=== PATIENT | male | born 1975 | race Two or more races ===

== ENCOUNTER 2025-01-28 13:59 | Inpatient (IN) | payer MEDICAID, OTHER ==
[~2025-01-28] VITALS: Ht 170.2 cm; Wt 107.3 kg
--- NOTE | 2025-01-28 14:38 | ED.PDOC ---
HPI Comments 49 year old here with chest pain. Pt states he had just woken up when the discomfort started. Reports pressure-like chest discomfort with no radiation. No nausea no vomiting. Patient went to urgent care center earlier today for evaluation and there was some abnormal EKG and was sent to the ER for evaluation. Blood pressure was 180/120 at the urgent care. And was given 2 pills. He believes to lower his blood pressure. Blood pressure after was 170/105. He continues to have chest discomfort. He is a known diabetic and hypertension. Denies any shortness of breath. No recent cough cold runny nose for or chills. Chief Complaint: Chest Pain Time Seen by MD: 14:11 Reviewed Notes: Medications, Allergies Allergies: Coded Allergies: NO KNOWN ALLERGIES (Unverified , 01/28/25) Information Source: Patient Mode of Arrival: Ambulatory Past Medical History PAST MEDICAL HISTORY: DM, HTN Surgical History: Denies all surgeries Family History Family History: Unknown Social History Smoker: Non-Smoker Alcohol: Denies ETOH Use Drugs: Denies Drug Use Lives In: Home Constitutional: denies: chills, diaphoresis, fatigue, fever, malaise, sweats, weakness, others EENTM: denies: blurred vision, double vision, ear bleeding, ear discharge, ear drainage, ear pain, ear ringing, eye pain, eye redness, hearing loss, mouth pain, mouth swelling, nasal discharge, nose bleeding, nose congestion, nose pain, photophobia, tearing, throat pain, throat swelling, voice changes, others Respiratory: denies: cough, hemoptysis, orthopnea, SOB at rest, shortness of breath, SOB with excertion, stridor, wheezing, others Cardiovascular: reports: chest pain; denies: dizzy spells, diaphoresis, Dyspnea on exertion, edema, irregular heart beat, left arm pain, lightheadedness, palpitations, PND, syncope, others Gastrointestinal: denies: abdomen distended, abdominal pain, blood streaked bowels, constipated, diarrhea, dysphagia, difficulty swallowing, hematemesis, melena, nausea, poor appetite, poor fluid intake, rectal bleeding, rectal pain, vomiting, others Genitourinary: denies: burning, dysuria, flank pain, frequency, hematuria, incontinence, penile discharge, penile sore, pain, testicle pain, testicle swelling, urgency, others Neurological: denies: dizziness, fainting, headache, left sided numbness, left sided weakness, numbness, paresthesia, pre-existing deficit, right sided numbness, right sided weakness, seizure, speech problems, tingling, tremors, weakness, others Musculoskeletal: denies: back pain, gout, joint pain, joint swelling, muscle pain, muscle stiffness, neck pain, others Integumetry: denies: bruises, change in color, change in hair/nails, dryness, laceration, lesions, lumps, rash, wounds, others Allergic/Immunocompromised: denies: Difficulty Healing, Frequent Infections, Hives, Itching, others Hematologic/Lymphatic: denies: anemia, blood clots, easy bleeding, easy bruising, swollen glands, others Endocrine: denies: excessive hunger, excessive sweating, excessive thirst, excessive urination, flushing, intolerance to cold, intolerance to heat, unexplained weight gain, unexplained weight loss, others Psychiatric: denies: anxiety, bipolar disorder, depression, hopeless, panic disorder, schizophrenia, sleepless, suicidal, others All Other Systems: Reviewed and Negative Physical Exam General Appearance: No Apparent Distress, Normal HEENT: Normal ENT Inspection, Pharynx Normal, TMs Normal Neck: Full Range of Motion, Non-Tender, Normal, Normal Inspection Respiratory: Chest Non-Tender, Lungs Clear, No Accessory Muscle Use, No Respiratory Distress, Normal Breath Sounds Cardiovascular: No Edema, No JVD, No Murmur, No Gallop, Normal Peripheral Pulses, Regular Rate/Rhythm Breast Exam: Deferred Gastrointestinal: No Organomegaly, Non Tender, No Pulsatile Mass, Normal Bowel Sounds, Soft Genitalia: Deferred Pelvic: Deferred Rectal: Deferred Extremities: No calf tenderness, Normal capillary refill, Normal inspection, Normal range of motion, Non-tender, No pedal edema Musculoskeletal : Apperance: Normal Neurologic: Alert, renal dietitian II-XII nml as Tested, No Motor Deficits, Normal Affect, Normal Mood, No Sensory Deficits Cerebellar Function: Normal Reflexes: Normal Skin: Dry, Normal Color, Warm Lymphatic: No Adenopathy EKG EKG #1: Comments Seventy-five sinus rhythm mild T-wave inversion in 3 AVF V6. With some T-wave flattening in V4 V5. EKG #2: Comments EKG 2. At 3:00 p.m., 73 sinus rhythm inverted T-waves in 2 3 AVF V4 V5 Was a procedure done? Was a procedure done?: No CP Differential Dx Differential Diagnosis: N/A Differential Diagnosis: N/A Differential Diagnosis: Angina, Aortic dissection, Cholelithiasis, Myocardial Infarction, Pericarditis, Pneumonia, Pneumothorax, Pulmonary Embolus X-Ray, Labs, Meds, VS Vital Signs Date Time Temp Pulse Resp B/P (MAP) Pulse Ox O2 Delivery O2 Flow Rate FiO2 01/28/25 15:00 73 01/28/25 14:01 98.3 88 16 153/114 96 98.3 01/28/25 13:59 75 Lab Test 01/28/25 15:33 Range/Units White Blood Count 8.5 4.4-10.8 10^3/uL Red Blood Count 4.38 L 4.5-5.90 10^6/uL Hemoglobin 13.5 13.5-17.5 g/dL Hematocrit 38.9 L 41.0-53.0 % Mean Corpuscular Volume 88.8 80.0-100.0 fL Mean Corpuscular Hemoglobin 30.8 28.0-32.0 pg Mean Corpuscular Hemoglobin Concent 34.7 32.0-36.0 g/dL Red Cell Distribution Width 13.2 11.8-14.3 % Platelet Count 269 140-450 10^3/uL Mean Platelet Volume 8.1 6.9-10.8 fL Neutrophils (%) (Auto) 65.5 37.0-80.0 % Lymphocytes (%) (Auto) 23.3 10.0-50.0 % Monocytes (%) (Auto) 8.6 0.0-12.0 % Eosinophils (%) (Auto) 2.0 0.0-7.0 % Basophils (%) (Auto) 0.6 0.0-2.0 % Neutrophils # (Auto) 5.5 1.6-8.6 10 ^3/uL Lymphocytes # (Auto) 2.0 0.4-5.4 10 ^3/uL Monocytes # (Auto) 0.7 0-1.3 10 ^3/uL Eosinophils # (Auto) 0.2 0-0.8 10 ^3/uL Basophils # (Auto) 0.1 0-0.2 10 ^3/uL Nucleated Red Blood Cells 0.1 % Sodium Level 142 136-145 mmol/L Potassium Level 4.0 3.5-5.1 mmol/L Chloride Level 105 98-107 mmol/L Carbon Dioxide Level 30 20-31 mmol/L Anion Gap 7 5-15 Blood Urea Nitrogen 14 9-23 mg/dL Creatinine 0.91 0.700-1.30 mg/dL Glomerular Filtration Rate Calc 103 >90 mL/min BUN/Creatinine Ratio 15.4 10.0-20.0 Serum Glucose 175 H 74-106 mg/dL Calcium Level 9.0 8.7-10.4 mg/dL Troponin I High Sensitivity < 3 L </=54 ng/L 49 Year old male presents here with chest discomfort. He has a known history of diabetes and hypertension. He reports pressure-like discomfort. Concerned about acute coronary syndrome. CBC BMP troponin EKG has been ordered. CBC within normal limits. BMP also within normal limits. Troponin is negative. EKG however demonstrates inverted T-waves in inferior and lateral leads. Concern for acute coronary syndrome. I have given the patient nitroglycerin and aspirin in the ER. Chest x-ray has been ordered. First set troponin is negative. At this time I have spoken to hospitalist team for admission. Time of 1ST Reevaluation: 15:26 Reevaluation 1ST: Unchanged Patient Education/Counseling: Diagnosis, Treatment Family Education/Counseling: No Family Present SEPSIS Sepsis Screen Date sepsis recognized/suspect: Jan 28, 2025 Time Sepsis recognized/suspect: 1401 Recent Procedure: No On Antibiotic Therapy: No Respiratory Rate >20: No Heart Rate >90: No Temp<36 C (96.8 F) or >38.3 C: No SBP <90 or MAP <65 mmHG: No New Acute Mental Status Change: No Is the patient on CPAP, BIPAP,: No Physician Orders Electrocardigram (01/28/25 15:01) Electrocardigram (01/28/25 17:01) Troponin-I Hs (01/28/25 15:13) Vital Signs Date Time Temp Pulse Resp B/P (MAP) Pulse Ox O2 Delivery O2 Flow Rate FiO2 01/28/25 15:00 73 01/28/25 14:01 98.3 88 16 153/114 96 98.3 01/28/25 13:59 75 Laboratory Tests Test 01/28/25 15:33 White Blood Count 8.5 10^3/uL (4.4-10.8) Departure 1 Departure Time of Disposition: 16:07 Impression: Primary Impression: Chest pain Qualified Codes: R07.9 - Chest pain, unspecified Disposition: 09 ADMITTED INPATIENT Condition: Fair Critical Care Note Critical Care Time?: No Stability Stability form required: No Heart Score Heart Score: Heart Score Response (Comments) Value History Moderate Suspicious 1 EKG Repolarization Disturb 1 Age 45-64 1 Risk Factors >3 or Hx ASHD 2 Troponin Normal limit 0 Total 5 I personally scribed for RACHID MCKNIGHT MD ([email or web address]) on 01/28/25 at 14:56. Electronically submitted by Kandy Braun ([facility]). RACHID MCKNIGHT MD Jan 28, 2025 14:38
--- NOTE | 2025-01-28 15:01 | ECG ---
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
[2025-01-28 15:51] LABS: Hematocrit 38.9 % (41.0-53.0); Hemoglobin 13.5 g/dL (13.5-17.5); Mean Corpuscular Hemoglobin 30.8 pg (28.0-32.0); Mean Corpuscular Volume 88.8 fL (80.0-100.0); Nucleated Red Blood Cells % 0.1 %
[2025-01-28 15:55] LABS: Chloride 105 mmol/L (98-107); Potassium 4.0 mmol/L (3.5-5.1); Sodium 142 mmol/L (136-145)
[2025-01-28 15:56] LABS: Anion Gap 7 (5-15); Carbon Dioxide 30 mmol/L (20-31)
[2025-01-28 15:57] LABS: Calcium 9.0 mg/dL (8.7-10.4)
[2025-01-28 16:01] LABS: BUN/Creatinine Ratio 15.4 (10.0-20.0); Blood Urea Nitrogen 14 mg/dL (9-23)
[2025-01-28 16:02] LABS: Glucose 175 mg/dL (74-106)
--- NOTE | 2025-01-28 16:22 | DVHHP2 ---
Admitting Diagnosis: Chest pain History of Present Illness 49 year old here with chest pain. Pt states he had just woken up when the discomfort started. Reports pressure-like chest discomfort with no radiation. No nausea no vomiting. Patient went to urgent care center earlier today for evaluation and there was some abnormal EKG and was sent to the ER for evaluation. Blood pressure was 180/120 at the urgent care. And was given 2 pills. He believes to lower his blood pressure. Blood pressure after was 170/105. He continues to have chest discomfort. He is a known diabetic and hypertension. Denies any shortness of breath. No recent cough cold runny nose for or chills. PAST MEDICAL HISTORY: DM, HTN Surgical History: Denies all surgeries Family History Family History: Unknown Social History Smoker: Non-Smoker Alcohol: Denies ETOH Use Drugs: Denies Drug Use Lives In: Home Allergies: Coded Allergies: NO KNOWN ALLERGIES (Unverified , 01/28/25) Current Medications Current Medications Medications (Trade) Dose Ordered Sig/Debra Route PRN Reason Start Time Stop Time Status Last Admin Sodium Chloride (Saline Lock Ns) 10 ml Q8HR IV 01/28/25 22:00 Docusate Sodium (Colace Capsule) 100 mg BIDPRN PRN PO FOR CONSTIPATION 01/28/25 18:45 Acetaminophen (Tylenol Tablet) 650 mg Q6HP PRN PO PAIN SCALE 1-3 OR TEMP>100.4 01/28/25 18:45 Acetaminophen/ Hydrocodone Bitart (Trego 5/325MG Tab) 1 tab Q4HP PRN PO MODERATE PAIN (4-6 PAIN SCALE) 01/28/25 18:45 Hydromorphone HCl (Dilaudid Injection) 0.5 mg Q4HP PRN IV SEVERE PAIN (7-10 PAIN SCALE) 01/28/25 18:45 Enoxaparin Sodium (Lovenox) 40 mg DAILY SC 01/29/25 10:00 Nitroglycerin (Ntrostat Sublingual) 0.4 mg Q5MINP PRN SL FOR CHEST PAIN 01/28/25 18:45 Morphine Sulfate 2 mg Q30M PRN IV FOR CHEST PAIN 01/28/25 18:45 Hydralazine HCl (Apresoline Injection) 10 mg Q6HP PRN IV SBP>150 01/28/25 19:30 01/28/25 19:24 Vital Signs Vital Signs Date Time Temp Pulse Resp B/P (MAP) Pulse Ox O2 Delivery O2 Flow Rate FiO2 01/28/25 19:24 175/110 01/28/25 19:13 98.2 85 16 96 98.2 Physical Exam Generally-49 years old male, overweight, sitting on chair. No apparent distress HEENT-atraumatic normocephalic Heart-regular rate and rhythm Lungs clear to auscultate bilaterally Soft nontender nondistended Musculoskeletal-no edema cyanosis Neuro-AO x3 No focal deficits SEPSIS Sepsis Screen Date sepsis recognized/suspect: Jan 28, 2025 Time Sepsis recognized/suspect: 1401 Recent Procedure: No On Antibiotic Therapy: No Respiratory Rate >20: No Heart Rate >90: No Temp<36 C (96.8 F) or >38.3 C: No SBP <90 or MAP <65 mmHG: No New Acute Mental Status Change: No Is the patient on CPAP, BIPAP,: No Physician Orders Electrocardigram (01/28/25 15:01) Electrocardigram (01/28/25 17:01) Chest Two Views Routine (01/28/25 16:06) Echo 2d Mode Cardiac Dop (01/28/25 16:22) Admit (01/28/25 18:35) Code Status (01/28/25 18:35) Vital Signs .PER UNIT PROTOCOL (01/28/25 18:35) Review Orders With Adm.Md (01/28/25 18:35) Encourage Activity As Tolerate (01/28/25 18:35) Sodium Chloride Lock (Saline Lock Ns) (01/28/25 22:00) Docusate Sodium Capsule (Colace Capsule) (01/28/25 18:45) Acetaminophen Tablet (Tylenol Tablet) (01/28/25 18:45) Notify Md Of Changes From Base (01/28/25 18:35) Advance Directive (01/28/25 18:35) Patient Condition (01/28/25 18:35) Allergies (01/28/25 18:35) Hydrocodone-Acet 5/325mg Tab (Trego 5/32 (01/28/25 18:45) Hydromorphone Injection (Dilaudid Inject (01/28/25 18:45) Enoxaparin Sodium (Lovenox) (01/29/25 10:00) Nitroglycerin Sublingual (Ntrostat Subli (01/28/25 18:45) Morphine Sulfate Injection (01/28/25 18:45) Stat Ekg For Chest Pain (01/28/25 18:35) Notify Of Changes From Base (01/28/25 18:35) Front Desk Representative For 24 Hours (01/28/25 18:35) Emergency Dysrhythmia Protocol (01/28/25 18:35) Rhythm Strips Once Every Shift (01/28/25 18:35) Oxygen By Nasal Cannula (01/28/25 18:35) Cardiac Diet-2gna,Lofat,Lochol (01/29/25 Breakfast) Hydralazine Injection (Apresoline Inject (01/28/25 19:30) Vital Signs Date Time Temp Pulse Resp B/P (MAP) Pulse Ox O2 Delivery O2 Flow Rate FiO2 01/28/25 19:24 175/110 01/28/25 19:13 98.2 85 16 161/106 (124) 96 98.2 01/28/25 15:00 73 01/28/25 14:01 98.3 88 16 153/114 96 98.3 01/28/25 13:59 75 Laboratory Tests Test 01/28/25 15:33 White Blood Count 8.5 10^3/uL (4.4-10.8) Medications Medications Dose Ordered Sig/Debra Route Start Time Stop Time Status Last Admin Dose Admin Aspirin 162 mg ONCE ONCE PO 01/28/25 14:15 01/28/25 14:16 DC 01/28/25 19:27 Hydralazine HCl 10 mg Q6HP PRN IV 01/28/25 19:30 01/28/25 19:24 Results Labs Test 01/28/25 16:17 01/28/25 15:33 Range/Units Troponin I High Sensitivity < 3 L </=54 ng/L White Blood Count 8.5 4.4-10.8 10^3/uL Red Blood Count 4.38 L 4.5-5.90 10^6/uL Hemoglobin 13.5 13.5-17.5 g/dL Hematocrit 38.9 L 41.0-53.0 % Mean Corpuscular Volume 88.8 80.0-100.0 fL Mean Corpuscular Hemoglobin 30.8 28.0-32.0 pg Mean Corpuscular Hemoglobin Concent 34.7 32.0-36.0 g/dL Red Cell Distribution Width 13.2 11.8-14.3 % Platelet Count 269 140-450 10^3/uL Mean Platelet Volume 8.1 6.9-10.8 fL Neutrophils (%) (Auto) 65.5 37.0-80.0 % Lymphocytes (%) (Auto) 23.3 10.0-50.0 % Monocytes (%) (Auto) 8.6 0.0-12.0 % Eosinophils (%) (Auto) 2.0 0.0-7.0 % Basophils (%) (Auto) 0.6 0.0-2.0 % Neutrophils # (Auto) 5.5 1.6-8.6 10 ^3/uL Lymphocytes # (Auto) 2.0 0.4-5.4 10 ^3/uL Monocytes # (Auto) 0.7 0-1.3 10 ^3/uL Eosinophils # (Auto) 0.2 0-0.8 10 ^3/uL Basophils # (Auto) 0.1 0-0.2 10 ^3/uL Nucleated Red Blood Cells 0.1 % Sodium Level 142 136-145 mmol/L Potassium Level 4.0 3.5-5.1 mmol/L Chloride Level 105 98-107 mmol/L Carbon Dioxide Level 30 20-31 mmol/L Anion Gap 7 5-15 Blood Urea Nitrogen 14 9-23 mg/dL Creatinine 0.91 0.700-1.30 mg/dL Glomerular Filtration Rate Calc 103 >90 mL/min BUN/Creatinine Ratio 15.4 10.0-20.0 Serum Glucose 175 H 74-106 mg/dL Calcium Level 9.0 8.7-10.4 mg/dL Primary Diagnosis Chest pain rule out ACS Plan Patient troponin negative EKG normal sinus rhythm no significant ST segment changes Check echo of the heart rule out regional wall motion Cardiac diet Full code Lovenox for DVT prophylaxis No GI prophylaxis needed Plan discussed with: Patient Problems List: (1) Chest pain Status: Acute (2) Hypertension Date of Service: Jan 28, 2025 Billing Provider: ÁLVARO THIBODEAUX MD Common Visit Codes: [id number] INP/OBS CARE (MOD) ÁLVARO THIBODEAUX MD Jan 28, 2025 16:22
--- NOTE | 2025-01-28 16:48 | DVH ---
CHEST RADIOGRAPH Indication: ro cp Technique: Frontal and lateral view of the chest was obtained Comparison: None FINDINGS: Lines and Tubes: None Lungs: Clear Pleura: No effusion. No pneumothorax. Cardiomediastinal contours: Cardiomegaly Bones: Unremarkable IMPRESSION: Increased interstital prominence. This may represent pulmonary vascular congestion and/or viral pneum onia. Clinical correlation advised.
[2025-01-28] MEDS ORDERED: NITROGLYCERIN 0.4 MG SL TAB SL PRN (18:45)
[2025-01-28] MEDS ORDERED: HYDROmorphone HCL 2 MG/ML VL/or syr IV PRN (18:45)
[2025-01-28] MEDS ORDERED: ACETAMINOPHEN 325 MG TAB PO PRN (18:45)
[2025-01-28] MEDS ORDERED: MORPHINE SULFATE INJ 2 MG/ml SYRG IV PRN (18:45)
[2025-01-28] MEDS ORDERED: HYDROcodone-ACET 5/325MG TAB PO PRN (18:45)
[2025-01-28] MEDS ORDERED: DOCUSATE SOD 100 MG CAP PO PRN (18:45)
[2025-01-28] MEDS: hydrALAZINE HCL 20 MG/ML VL IV PRN (19:24)
[2025-01-28] MEDS: NITROGLYCERIN 0.4 MG SL TAB SL ONE (19:27)
[2025-01-28] MEDS: hydrALAZINE HCL 20 MG/ML VL ONE (19:27)
[2025-01-28] MEDS: SODIUM CHLOR 0.9% PF (SALINE LOCK) 10ML VIAL/SYR IV SCH (22:00)
[2025-01-29] VITALS (8 sets, daily range): BP systolic 104–165; BP diastolic 55–105; PULSE 71–117; RESP 16–18; TEMP 98–99.5; O2SAT 94–100
[2025-01-29 07:38] LABS: Alanine Aminotransferase 26 U/L (7-40); Alkaline Phosphatase 92 U/L (46-116); Anion Gap 8 (5-15); BUN/Creatinine Ratio 13.7 (10.0-20.0); Blood Urea Nitrogen 10 mg/dL (9-23); Carbon Dioxide 27 mmol/L (20-31); Chloride 101 mmol/L (98-107); Potassium 3.6 mmol/L (3.5-5.1); Sodium 136 mmol/L (136-145); Total Protein 6.5 g/dL (5.7-8.2)
[2025-01-29 07:39] LABS: Albumin 4.3 g/dL (3.2-4.8); Bilirubin, Total 0.6 mg/dL (0.2-1.0)
[2025-01-29 07:40] LABS: Calcium 8.7 mg/dL (8.7-10.4); Glucose 197 mg/dL (74-106)
[2025-01-29 07:45] LABS: Hematocrit 39.7 % (41.0-53.0); Hemoglobin 13.6 g/dL (13.5-17.5); Mean Corpuscular Hemoglobin 30.6 pg (28.0-32.0); Mean Corpuscular Volume 89.5 fL (80.0-100.0); Nucleated Red Blood Cells % 0.2 %
[2025-01-29] MEDS: ENOXAPARIN SOD 40 MG/0.4 ML SYRINGE SC SCH (10:00)
[2025-01-29] MEDS ORDERED: METF-370 PO (12:04)
[2025-01-29] MEDS ORDERED: LOSA-534 PO (12:04)
--- NOTE | 2025-01-29 14:25 | DVHPN2 ---
Subjective Was admitted for chest pain in the yesterday Troponins are negative Blood pressure was high He takes metformin 500 mg twice a day and losartan 50 mg daily at home Changes from previous H/P or p: Changes Objective Vitals Vital Signs Date Time Temp Pulse Resp B/P (MAP) Pulse Ox O2 Delivery O2 Flow Rate FiO2 01/29/25 13:41 141/80 (100) 100 01/29/25 10:15 Room Air* 0 98 21 01/29/25 09:00 98.8 97 16 98.8 General Appearance: Alert, Oriented X3, Cooperative, No acute distress Lungs: Clear to auscultation Cardiovascular: Regular rate, Normal S1 Abdomen: Normal bowel sounds, Soft, No tenderness Extremities: No edema Medications Current Medications Medications Dose Ordered Sig/Debra Route Start Time Stop Time Status Last Admin Dose Admin Sodium Chloride 10 ml Q8HR IV 01/28/25 22:00 01/29/25 06:00 10 ML Docusate Sodium 100 mg BIDPRN PRN PO 01/28/25 18:45 Acetaminophen 650 mg Q6HP PRN PO 01/28/25 18:45 Acetaminophen/ Hydrocodone Bitart 1 tab Q4HP PRN PO 01/28/25 18:45 Hydromorphone HCl 0.5 mg Q4HP PRN IV 01/28/25 18:45 Enoxaparin Sodium 40 mg DAILY SC 01/29/25 10:00 01/29/25 10:00 40 MG Nitroglycerin 0.4 mg Q5MINP PRN SL 01/28/25 18:45 Morphine Sulfate 2 mg Q30M PRN IV 01/28/25 18:45 Hydralazine HCl 10 mg Q6HP PRN IV 01/28/25 19:30 01/29/25 12:12 10 MG Losartan Potassium 100 mg DAILY PO 01/30/25 10:00 Laboratory Results Laboratory Tests 01/29/25 06:49 Chemistry Test 01/28/25 15:33 01/29/25 06:49 Calcium Level 9.0 mg/dL (8.7-10.4) 8.7 mg/dL (8.7-10.4) Albumin 4.3 g/dL (3.2-4.8) Total Protein 6.5 g/dL (5.7-8.2) LFT Test 01/29/25 06:49 Alanine Aminotransferase (ALT) 26 U/L (7-40) Alkaline Phosphatase 92 U/L (46-116) Aspartate Amino Transferase (AST) 16 U/L (13-40) Total Bilirubin 0.6 mg/dL (0.2-1.0) Assessment/Plan Assessment/Plan Acute chest pain rule out coronary syndrome Uncontrolled hypertension Type 2 diabetes Obesity Plan Cardiology consult Echocardiogram Aspirin Increase losartan to 100 mg daily Add metoprolol 12.5 mg twice a day Lovenox Monitor closely Plan discussed with: Patient My Orders Orders - ARUNA BECKFORD MD Procedure Category Date Status Time Losartan Tablet PHA 01/30/25 In Process (Cozaar Tablet) 10:00 * Cardiology Consult CONS 01/29/25 Transmitted 14:07 Date of Service: Jan 29, 2025 Billing Provider: ARUNA BECKFORD MD Common Visit Codes: [id number] INP/OBS CARE(HIGH) ARUNA BECKFORD MD Jan 29, 2025 14:25
[2025-01-29] MEDS: LOSARTAN POTASSIUM 50 MG TAB PO ONE (14:41)
[2025-01-29] MEDS: METOPROLOL TARTRATE 25 MG TAB PO ONE (16:41)
[2025-01-29] MEDS: METOPROLOL TARTRATE 25 MG TAB PO SCH (21:19)
[2025-01-30] VITALS (8 sets, daily range): BP systolic 145–163; BP diastolic 91–106; PULSE 70–93; RESP 16–20; TEMP 97.9–98.6; O2SAT 93–98
[2025-01-30 07:28] LABS: Hematocrit 39.2 % (41.0-53.0); Hemoglobin 13.5 g/dL (13.5-17.5); Mean Corpuscular Hemoglobin 30.7 pg (28.0-32.0); Mean Corpuscular Volume 89.0 fL (80.0-100.0); Nucleated Red Blood Cells % 0.0 %
[2025-01-30 07:52] LABS: Alanine Aminotransferase 23 U/L (7-40); Alkaline Phosphatase 87 U/L (46-116); Anion Gap 9 (5-15); Calcium 8.8 mg/dL (8.7-10.4); Carbon Dioxide 29 mmol/L (20-31); Chloride 104 mmol/L (98-107); Potassium 4.1 mmol/L (3.5-5.1); Sodium 142 mmol/L (136-145)
[2025-01-30 07:53] LABS: Total Protein 5.8 g/dL (5.7-8.2)
[2025-01-30 07:54] LABS: Albumin 3.9 g/dL (3.2-4.8); Bilirubin, Total 0.7 mg/dL (0.2-1.0); Cholesterol 161 mg/dL (< 200)
[2025-01-30 07:55] LABS: Glucose 138 mg/dL (74-106); HDL Cholesterol 31 mg/dL (40-59); Triglycerides 187 mg/dL (< 150)
[2025-01-30 08:00] LABS: Magnesium 1.9 mg/dL (1.6-2.6)
--- NOTE | 2025-01-30 08:22 | DVHSR ---
APPROVED REPORT EXAM: Two-dimensional and M-mode echocardiogram with Doppler and color Doppler. Blood Pressure: 153/89 mmHg INDICATION Chest Pain R/O acs RISK FACTORS Obesity: Height: 5'7", Weight: 220 DIMENSIONS LVDd4.7 (3.8-5.7cm)LA (2D)4.3 (1.9-4.0cm)Aortic Root3.7 (2.0-3.7cm) LVDs2.9 (2.5-4.0cm)LA (MM) (1.9-4.0cm)Aortic Cusp Exc2.0 (1.5-2.0cm) EF (%) 65.0 (55-70%)Rt. Atrium3.9 (1.9-4.0cm)Asc. Aorta cm IVSd1.2 (0.7-1.1cm)RV (D) (1.8-2.4cm) PWd1.3 (0.7-1.1cm) Mitral Valve MitralMitral Stenosis E wave0.77m/sMV Mean GR.mmHg A wave1.35m/sMV Peak GR.mmHg E/A ratio0.62D MVAcm2 DECEL [id number] 1/2 Tim[place] Aortic Valve Aortic ValveAortic Stenosis V11.10m/[place] Mean GR.4mmHg V21.50m/[place] Peak GR.9mmHg LVOT Diameter2.3 (1.8-2.4cm)Doppler AVA3.05cm2 Pulmonic Valve V21.23m/s Other Information Quality : Rhythm : Tachycardia Conclusion lvef 65% moderate LVH grade 1 diastolic dysfunction normal RV functoin normla atria no severe valve abnormalities noted
[2025-01-30 08:51] LABS: BUN/Creatinine Ratio 17.9 (10.0-20.0); Blood Urea Nitrogen 15 mg/dL (9-23)
--- NOTE | 2025-01-30 09:14 | ECG ---
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
[2025-01-30] MEDS: LOSARTAN POTASSIUM 50 MG TAB PO SCH (09:23)
--- NOTE | 2025-01-30 11:13 | DVHPN2 ---
Subjective Blood pressure is still high but it is better Changes from previous H/P or p: Changes Objective Vitals Vital Signs Date Time Temp Pulse Resp B/P (MAP) Pulse Ox O2 Delivery O2 Flow Rate FiO2 01/30/25 09:23 155/97 01/30/25 09:22 75 01/30/25 09:00 97.9 20 97 97.9 01/30/25 08:00 Room Air* 0 21 Intake/Output Intake and Output 01/30/25 07:00 Intake Total 800 ml Balance 800 ml Intake Oral 800 ml # Voids 5 # Bowel Movements 1 General Appearance: Alert, Oriented X3, Cooperative, No acute distress Lungs: Clear to auscultation Cardiovascular: Regular rate, Normal S1 Abdomen: Normal bowel sounds, Soft, No tenderness Extremities: No edema Medications Current Medications Medications Dose Ordered Sig/Debra Route Start Time Stop Time Status Last Admin Dose Admin Sodium Chloride 10 ml Q8HR IV 01/28/25 22:00 01/30/25 06:27 10 ML Docusate Sodium 100 mg BIDPRN PRN PO 01/28/25 18:45 Acetaminophen 650 mg Q6HP PRN PO 01/28/25 18:45 Acetaminophen/ Hydrocodone Bitart 1 tab Q4HP PRN PO 01/28/25 18:45 Hydromorphone HCl 0.5 mg Q4HP PRN IV 01/28/25 18:45 Enoxaparin Sodium 40 mg DAILY SC 01/29/25 10:00 01/30/25 09:23 40 MG Nitroglycerin 0.4 mg Q5MINP PRN SL 01/28/25 18:45 Morphine Sulfate 2 mg Q30M PRN IV 01/28/25 18:45 Hydralazine HCl 10 mg Q6HP PRN IV 01/28/25 19:30 01/29/25 12:12 10 MG Losartan Potassium 100 mg DAILY PO 01/30/25 10:00 01/30/25 09:23 100 MG Metoprolol Tartrate 12.5 mg BID PO 01/29/25 22:00 01/30/25 09:22 12.5 MG Aspirin 81 mg DAILY PO 01/30/25 10:00 01/30/25 09:21 81 MG Laboratory Results Laboratory Tests 01/30/25 05:52 Chemistry Test 01/30/25 05:52 Albumin 3.9 g/dL (3.2-4.8) Calcium Level 8.8 mg/dL (8.7-10.4) Magnesium Level 1.9 mg/dL (1.6-2.6) Total Protein 5.8 g/dL (5.7-8.2) Lipid panel Test 01/30/25 05:52 Cholesterol Level 161 mg/dL (< 200) HDL Cholesterol 31 mg/dL (40-59) L Triglycerides Level 187 mg/dL (< 150) H LFT Test 01/30/25 05:52 Alanine Aminotransferase (ALT) 23 U/L (7-40) Alkaline Phosphatase 87 U/L (46-116) Aspartate Amino Transferase (AST) 14 U/L (13-40) Total Bilirubin 0.7 mg/dL (0.2-1.0) HgA1c, TSH Test 01/30/25 05:52 Thyroid Stimulating Hormone (TSH) 0.48 uIU/mL (0.55-4.78) L Assessment/Plan Assessment/Plan Acute chest pain rule out coronary syndrome Uncontrolled hypertension Type 2 diabetes Obesity Plan Cardiology consult Echocardiogram Aspirin Increase losartan to 100 mg daily Add metoprolol 12.5 mg twice a day Lovenox Monitor closely 01/30/2025: No chest pain Cardiology consult pending Echocardiogram showed moderate LVH with 65% ejection fraction Continue losartan 100 mg daily And metoprolol 12.5 mg twice a day Plan discussed with: Patient My Orders Orders - ARUNA BECKFORD MD Procedure Category Date Status Time Losartan Tablet PHA 01/30/25 In Process (Cozaar Tablet) 10:00 Metoprolol Tartrate PHA 01/29/25 In Process Tablet (Lopressor Ta 22:00 Aspirin Tablet PHA 01/30/25 In Process 10:00 * Cardiology Consult CONS 01/30/25 Transmitted 02:50 Molecular Genetic Pathologist ORDERS 01/30/25 Transmitted 09:17 Transfer Orders XFER 01/30/25 Transmitted 09:55 Date of Service: Jan 30, 2025 Billing Provider: ARUNA BECKFORD MD Common Visit Codes: [id number] INP/OBS CARE(HIGH) ARUNA BECKFORD MD Jan 30, 2025 11:13
[2025-01-30 11:18] LABS: Hepatitis B Surface Antigen Negative (Negative); Hepatitis C Antibody Negative (Negative)
--- NOTE | 2025-01-30 13:14 | DVHINCON2 ---
Date Seen: Jan 30, 2025 Referring Physician MD Austin Reason for Consultation Chest pain History of Present Illness This is a pleasant Bulgarian-speaking man who presented to the emergency room with a chief complaint of an abnormal 12 lead electrocardiogram. Per patient, he attended a regular PCP appointment when he underwent a couple of 12 lead electrocardiograms with the latest one deemed to be abnormal the patient been referred to the nearest emergency room. States his PCP noted some changes raising concern for further evaluation. He was not transported via EMS. Denies chest pain at time of evaluation by PCP. States his BP was 181/119 mmHg and only taking Losartan 50 mg at home. Per , the patient's blood sugars and BP are consistently high. She also reports snoring during sleep. He underwent multiple 12 lead electrocardiograms x2 revealing a sinus rhythm with T-wave inversion to inferior leads and leads V5-V6. Serial troponin levels are negative. Significant medical history includes jav-mqitwvn-plvxfzzcc diabetes mellitus, hypertension, and obesity. Past Medical History Past medical history reviewed. No other significant than mentioned above. Past Surgical History Past surgical history reviewed. No other significant than mentioned above. Family History: FH: diabetes mellitus G8 FATHER FH: stroke High blood pressure G8 FATHER Patient's mother is G8 MOTHER Family History Family history reviewed. Social History Denies the use of illicit drugs, alcohol, or tobacco use. Allergies: Coded Allergies: NO KNOWN ALLERGIES (Unverified , 01/28/25) Home Meds Reported Medications Losartan Potassium (Losartan Potassium) 50 Mg Tab, 50 MG PO DAILY for 30 Days, MG 01/29/25 Metformin Hydrochloride (Metformin Hcl) 500 Mg Tab, 500 MG PO IBID for 30 Days, MG 01/29/25 Home Meds Home medications reviewed. Current Medications Current Medications Medications (Trade) Dose Ordered Sig/Debra Route PRN Reason Start Time Stop Time Status Last Admin Losartan Potassium (Cozaar Tablet) 100 mg DAILY PO 01/30/25 10:00 01/30/25 09:23 Metoprolol Tartrate (Lopressor Tablet) 12.5 mg BID PO 01/29/25 22:00 01/30/25 09:22 Aspirin 81 mg DAILY PO 01/30/25 10:00 01/30/25 09:21 Review of Systems Constitutional: No symptom reported Ears, Nose, & Throat: No symptom reported Eyes: No symptom reported Neurological: No symptoms reported Pulmonary/Respiratory: Snoring Cardiovascular: No symptom reported Gastrointestinal: No symptom reported Genitourinary: No symptom reported Musculoskeletal: No symptom reported Skin: No symptom reported Psychiatric: No symptom reported Endocrine: No symptom reported Hemotologic/Lymphatic: No symptom reported Vital Signs Vital Signs Date Time Temp Pulse Resp B/P (MAP) Pulse Ox O2 Delivery O2 Flow Rate FiO2 01/30/25 10:22 77 148/99 01/30/25 09:00 97.9 20 97 97.9 01/30/25 08:00 Room Air* 0 21 Physical Exam General Appearance: Cooperative. Well developed. Obese. In no acute distress Head Exam: Normal inspection Neck Exam: Normal inspection. Non-tender. Normal alignment Pulmonary/Respiratory: Chest non-tender. Clear bilateral breath sounds Cardiovascular/Chest: Regular rate and rhythm. S1, S2. NSR with T-wave inversion to inferior and lateral leads. No murmurs. No JVD. Peripheral Pulses: 2+ Radial (R). 2+ Radial (L). 2+ Pedal (R). 2+ Pedal (L) Abdominal Exam: Normal bowel sounds. Soft. Nontender. No hepatospenomegaly. No masses Ankle Exam: Negative ankle edema Lower extremities: Negative lower extremity edema Neuro/Mental Status: A&O x4. Coherent Thoughts/Psych: Normal thought pattern. Appropriate mood and affect. Good judgement and insight Appearance: In no acute distress Skin Exam: Normal inspection. Normal color. Warm. Dry Labs/Diagnostic Data Labs Test 01/30/25 05:52 01/29/25 06:49 01/28/25 16:17 Range/Units White Blood Count 8.9 # 4.4-10.8 10^3/uL Red Blood Count 4.41 L 4.5-5.90 10^6/uL Hemoglobin 13.5 13.5-17.5 g/dL Hematocrit 39.2 L 41.0-53.0 % Mean Corpuscular Volume 89.0 80.0-100.0 fL Mean Corpuscular Hemoglobin 30.7 28.0-32.0 pg Mean Corpuscular Hemoglobin Concent 34.5 32.0-36.0 g/dL Red Cell Distribution Width 13.3 11.8-14.3 % Platelet Count 265 140-450 10^3/uL Mean Platelet Volume 8.4 6.9-10.8 fL Neutrophils (%) (Auto) 64.6 37.0-80.0 % Lymphocytes (%) (Auto) 22.8 10.0-50.0 % Monocytes (%) (Auto) 9.7 0.0-12.0 % Eosinophils (%) (Auto) 2.5 0.0-7.0 % Basophils (%) (Auto) 0.4 0.0-2.0 % Neutrophils # (Auto) 5.8 1.6-8.6 10 ^3/uL Lymphocytes # (Auto) 2.0 0.4-5.4 10 ^3/uL Monocytes # (Auto) 0.9 0-1.3 10 ^3/uL Eosinophils # (Auto) 0.2 0-0.8 10 ^3/uL Basophils # (Auto) 0 0-0.2 10 ^3/uL Nucleated Red Blood Cells 0.0 % Sodium Level 142 # 136-145 mmol/L Potassium Level 4.1 3.5-5.1 mmol/L Chloride Level 104 98-107 mmol/L Carbon Dioxide Level 29 20-31 mmol/L Anion Gap 9 5-15 Blood Urea Nitrogen 15 9-23 mg/dL Creatinine 0.84 0.700-1.30 mg/dL Glomerular Filtration Rate Calc 106 >90 mL/min BUN/Creatinine Ratio 17.9 10.0-20.0 Serum Glucose 138 H 74-106 mg/dL Calcium Level 8.8 8.7-10.4 mg/dL Magnesium Level 1.9 1.6-2.6 mg/dL Total Bilirubin 0.7 0.2-1.0 mg/dL Aspartate Amino Transferase (AST) 14 13-40 U/L Alanine Aminotransferase (ALT) 23 7-40 U/L Alkaline Phosphatase 87 46-116 U/L Total Protein 5.8 5.7-8.2 g/dL Albumin 3.9 3.2-4.8 g/dL Triglycerides Level 187 H < 150 mg/dL Cholesterol Level 161 < 200 mg/dL LDL Cholesterol 106 H < 100 mg/dL HDL Cholesterol 31 L 40-59 mg/dL Thyroid Stimulating Hormone (TSH) 0.48 L 0.55-4.78 uIU/mL Hepatitis B Surface Antigen Negative Negative Hepatitis C Antibody Negative Negative Troponin I High Sensitivity < 3 L </=54 ng/L Assessment Hypertensive urgency Rule out coronary artery disease Plc-svfmfag-yukittdba diabetes mellitus Dyslipidemia, newly diagnosed Obesity ?HANS Plan/Recommendation (Dr. Magallanes) Transthoracic echocardiogram revealed LVEF 60% with moderate LVH and grade 1 diastolic dysfunction. Scheduled for a Cardiolite stress test at first [facility]. Continue ARB and add diuretic, chlorthalidone, for BP control for a target SBP <140 mmHg. Initiate tight glycemic control with moderate insulin protocol ACHS. Initiate lipid-lowering agent with statin. Strongly counseled risk factor modifications including diet, exercise, weight loss, and BP log. Consider an outpatient sleep study to rule out HANS. Further orders per clinical course. Thank you for allowing us to participate in this patient's care. Please call if you have any questions or concerns. This medical document was created using an electronic medical record system with voice recognition software and computerized dictation system. Although this document has been carefully reviewed, there might still be some phonetic and ty pographical errors. Occasional wrong-word or ``sound-alike substitutions may have occurred due to the inherent limitations of voice recognition software. These areas are purely typographical due to imperfections of the software programs and do not reflect any compromise in the patient's medical care. Please read the chart carefully and recognize, using context, where these sub stitutions have occurred. Plan discussed with: Patient, Spouse, Daughter, Other NYHA Physical activity limitations: NA Date of Service: Jan 30, 2025 Billing Provider: SUZETTE POLK Cardiology Common Codes: [id number] INP/OBS CARE (High) SUZETTE POLK Jan 30, 2025 13:14
[2025-01-30] MEDS ORDERED: DEXTROSE (50%) 50ML SYRG IV PRN (13:15)
[2025-01-30] MEDS: REGADENOSON 0.4 MG/5 ML SYRG IV ONE ×2 (14:42→14:43)
[2025-01-30] MEDS: InsuLIN REG 1unit/0.01ml Soln (100units/ml) SC SCH ×2 (16:44→21:24)
[2025-01-30] MEDS: ACCU-CHEK COMFORT CURVE STRIP VI SCH (16:45)
[2025-01-30] MEDS: ATORVASTATIN 20 MG TAB PO SCH (21:17)
--- NOTE | 2025-01-30 22:57 | DVHINCON2 ---
Date Seen: Jan 30, 2025 Referring Physician MD Austin Reason for Consultation Chest pain History of Present Illness This is a pleasant Lao-speaking male with a PMH of imd-mafknxz-efveermum diabetes mellitus, hypertension, and obesity who presented to the ED with complaint of an abnormal 12 lead electrocardiogram. Per patient, he attended a regular PCP appointment when he underwent a couple of 12 lead electrocardiograms with the latest one deemed to be abnormal the patient been referred to the nearest ED. States his PCP noted some changes raising concern for further evaluation. He was not transported via EMS. Denies chest pain at time of evaluation by PCP. States his BP was 181/119 mmHg and only taking Losartan 50 mg at home. Per , the patient's blood sugars and BP are consistently high. She also reports snoring during sleep. He underwent multiple 12 lead electrocardiograms x2 revealing a sinus rhythm with T-wave inversion to inferior leads and leads V5-V6. Serial troponin levels are negative. Patient was admitted to the hospital. I am asked to consult on this patient. Past Medical History Past medical history reviewed. No other significant than mentioned above. Past Surgical History Past surgical history reviewed. No other significant than mentioned above. Family History: FH: diabetes mellitus G8 FATHER FH: stroke High blood pressure G8 FATHER Patient's mother is G8 MOTHER Allergies: Coded Allergies: NO KNOWN ALLERGIES (Unverified , 01/28/25) Home Meds Reported Medications Losartan Potassium (Losartan Potassium) 50 Mg Tab, 50 MG PO DAILY for 30 Days, MG 01/29/25 Metformin Hydrochloride (Metformin Hcl) 500 Mg Tab, 500 MG PO IBID for 30 Days, MG 01/29/25 Current Medications Current Medications Medications (Trade) Dose Ordered Sig/Debra Route PRN Reason Start Time Stop Time Status Last Admin Losartan Potassium (Cozaar Tablet) 100 mg DAILY PO 01/30/25 10:00 01/30/25 09:23 Aspirin 81 mg DAILY PO 01/30/25 10:00 01/30/25 09:21 Chlorthalidone (Chlorthalidone) 25 mg DAILY@BREAKFAST PO 01/31/25 08:00 Diagnostic Test (Pha) (Accu-Chek Comfort Curve T) 1 strip ACHS 01/30/25 17:00 01/30/25 21:17 Insulin Human Regular (InsuLIN R) HS SC 01/30/25 22:00 01/30/25 21:24 Insulin Human Regular (InsuLIN R) AC SC 01/30/25 17:00 01/30/25 16:44 Dextrose 50 ml UD PRN IV Blood Sugar LESS THAN 60 01/30/25 13:15 Atorvastatin Calcium (Lipitor) 40 mg HS PO 01/30/25 22:00 01/30/25 21:17 Review of Systems Constitutional: No symptom reported Ears, Nose, & Throat: No symptom reported Eyes: No symptom reported Neurological: No symptoms reported Pulmonary/Respiratory: Snoring Cardiovascular: No symptom reported Gastrointestinal: No symptom reported Genitourinary: No symptom reported Musculoskeletal: No symptom reported Skin: No symptom reported Psychiatric: No symptom reported Endocrine: No symptom reported Hemotologic/Lymphatic: No symptom reported Vital Signs Vital Signs Date Time Temp Pulse Resp B/P (MAP) Pulse Ox O2 Delivery O2 Flow Rate FiO2 01/30/25 21:00 98.0 86 16 159/99 (119) 98 98.0 01/30/25 20:00 Room Air* 0 21 Physical Exam GENERAL: Alert and oriented x 3. No acute distress. Obese. EYES: PERRL, EOMI. Anicteric. HENT: Moist mucous membranes. LUNGS: Clear to auscultation bilaterally. CARDIOVASCULAR: Regular rate and rhythm. ABDOMEN: Soft, non-tender and non-distended. EXTREMITIES: No edema. NEUROLOGIC: No focal neurological deficits. SKIN: Warm, dry. Labs/Diagnostic Data Labs Test 01/30/25 20:59 01/30/25 05:52 01/29/25 06:49 01/28/25 16:17 Range/Units POC Glucose 207 H 70-106 mg/dl White Blood Count 8.9 # 4.4-10.8 10^3/uL Red Blood Count 4.41 L 4.5-5.90 10^6/uL Hemoglobin 13.5 13.5-17.5 g/dL Hematocrit 39.2 L 41.0-53.0 % Mean Corpuscular Volume 89.0 80.0-100.0 fL Mean Corpuscular Hemoglobin 30.7 28.0-32.0 pg Mean Corpuscular Hemoglobin Concent 34.5 32.0-36.0 g/dL Red Cell Distribution Width 13.3 11.8-14.3 % Platelet Count 265 140-450 10^3/uL Mean Platelet Volume 8.4 6.9-10.8 fL Neutrophils (%) (Auto) 64.6 37.0-80.0 % Lymphocytes (%) (Auto) 22.8 10.0-50.0 % Monocytes (%) (Auto) 9.7 0.0-12.0 % Eosinophils (%) (Auto) 2.5 0.0-7.0 % Basophils (%) (Auto) 0.4 0.0-2.0 % Neutrophils # (Auto) 5.8 1.6-8.6 10 ^3/uL Lymphocytes # (Auto) 2.0 0.4-5.4 10 ^3/uL Monocytes # (Auto) 0.9 0-1.3 10 ^3/uL Eosinophils # (Auto) 0.2 0-0.8 10 ^3/uL Basophils # (Auto) 0 0-0.2 10 ^3/uL Nucleated Red Blood Cells 0.0 % Sodium Level 142 # 136-145 mmol/L Potassium Level 4.1 3.5-5.1 mmol/L Chloride Level 104 98-107 mmol/L Carbon Dioxide Level 29 20-31 mmol/L Anion Gap 9 5-15 Blood Urea Nitrogen 15 9-23 mg/dL Creatinine 0.84 0.700-1.30 mg/dL Glomerular Filtration Rate Calc 106 >90 mL/min BUN/Creatinine Ratio 17.9 10.0-20.0 Serum Glucose 138 H 74-106 mg/dL Hemoglobin A1c 8.4 H <5.7 % A1C Calcium Level 8.8 8.7-10.4 mg/dL Magnesium Level 1.9 1.6-2.6 mg/dL Total Bilirubin 0.7 0.2-1.0 mg/dL Aspartate Amino Transferase (AST) 14 13-40 U/L Alanine Aminotransferase (ALT) 23 7-40 U/L Alkaline Phosphatase 87 46-116 U/L B-Type Natriuretic Peptide 37.23 0-100 pg/mL Total Protein 5.8 5.7-8.2 g/dL Albumin 3.9 3.2-4.8 g/dL Triglycerides Level 187 H < 150 mg/dL Cholesterol Level 161 < 200 mg/dL LDL Cholesterol 106 H < 100 mg/dL HDL Cholesterol 31 L 40-59 mg/dL Thyroid Stimulating Hormone (TSH) 0.48 L 0.55-4.78 uIU/mL Hepatitis B Surface Antigen Negative Negative Hepatitis C Antibody Negative Negative Troponin I High Sensitivity < 3 L </=54 ng/L Assessment Hypertensive urgency. Rule out coronary artery disease. Cqq-pdzijps-bwvwxzjeg diabetes mellitus. Dyslipidemia, newly diagnosed. Obesity. ?HANS. Plan/Recommendation I agree with your ongoing assessment and care of plan. Patient has been seen by Italia Garcia NP on my behalf. We have discussed the plan with the patient. Transthoracic echocardiogram revealed LVEF 60% with moderate LVH and grade 1 diastolic dysfunction. Scheduled for a Cardiolite stress test at first available. Continue ARB and add diuretic, chlorthalidone, for BP control for a target SBP <140 mmHg. Initiate tight glycemic control with moderate insulin protocol ACHS. Initiate lipid-lowering agent with statin. Strongly counseled risk factor modifications including diet, exercise, weight loss, and BP log. Consider an outpatient sleep study to rule out HANS. Additional plan as per the hospital course. Plan discussed with: Patient, Spouse NYHA Physical activity limitations: NA Date of Service: Jan 30, 2025 Billing Provider: NATHAN SÁNCHEZ MD Cardiology Common Codes: [id number] INP/OBS CARE (High) Cardiology Consultation Codes: [id number] CONSULT <45MIN NATHAN SÁNCHEZ MD Jan 30, 2025 22:57
[2025-01-31] VITALS (7 sets, daily range): BP systolic 149–161; BP diastolic 97–106; PULSE 75–101; RESP 16–20; TEMP 97.7–98.5; O2SAT 95–98
[2025-01-31 08:34] LABS: Hematocrit 38.5 % (41.0-53.0); Hemoglobin 13.4 g/dL (13.5-17.5); Mean Corpuscular Hemoglobin 30.9 pg (28.0-32.0); Mean Corpuscular Volume 89.0 fL (80.0-100.0); Nucleated Red Blood Cells % 0.0 %
[2025-01-31 08:46] LABS: Alanine Aminotransferase 32 U/L (7-40); Albumin 4.1 g/dL (3.2-4.8); Alkaline Phosphatase 87 U/L (46-116); Anion Gap 9 (5-15); BUN/Creatinine Ratio 16.5 (10.0-20.0); Bilirubin, Total 0.7 mg/dL (0.2-1.0); Blood Urea Nitrogen 13 mg/dL (9-23); Calcium 8.7 mg/dL (8.7-10.4); Carbon Dioxide 29 mmol/L (20-31); Chloride 104 mmol/L (98-107); Sodium 142 mmol/L (136-145); Total Protein 6.1 g/dL (5.7-8.2)
[2025-01-31 09:00] LABS: Glucose 137 mg/dL (74-106); Potassium 3.5 mmol/L (3.5-5.1)
[2025-01-31] MEDS: CHLORTHALIDONE 25 MG TAB PO SCH (09:48)
--- NOTE | 2025-01-31 10:43 | DVHPN2 ---
Subjective Blood pressure is still high Note is being Stress test is pending Changes from previous H/P or p: Changes Objective Vitals Vital Signs Date Time Temp Pulse Resp B/P (MAP) Pulse Ox O2 Delivery O2 Flow Rate FiO2 01/31/25 09:50 161/106 01/31/25 09:00 97.7 83 20 95 97.7 01/31/25 08:00 Room Air* 0 21 Intake/Output Intake and Output 01/31/25 07:00 Intake Total 1578 ml Output Total 1 ml Balance 1577 ml Intake Oral 1578 ml Output Stool Total 1 ml # Voids 5 General Appearance: Alert, Oriented X3, Cooperative, No acute distress Lungs: Clear to auscultation Cardiovascular: Regular rate, Normal S1 Abdomen: Normal bowel sounds, Soft, No tenderness Extremities: No edema Medications Current Medications Medications Dose Ordered Sig/Debra Route Start Time Stop Time Status Last Admin Dose Admin Sodium Chloride 10 ml Q8HR IV 01/28/25 22:00 01/31/25 06:30 10 ML Docusate Sodium 100 mg BIDPRN PRN PO 01/28/25 18:45 Acetaminophen 650 mg Q6HP PRN PO 01/28/25 18:45 Acetaminophen/ Hydrocodone Bitart 1 tab Q4HP PRN PO 01/28/25 18:45 Hydromorphone HCl 0.5 mg Q4HP PRN IV 01/28/25 18:45 Enoxaparin Sodium 40 mg DAILY SC 01/29/25 10:00 01/31/25 09:49 40 MG Nitroglycerin 0.4 mg Q5MINP PRN SL 01/28/25 18:45 Morphine Sulfate 2 mg Q30M PRN IV 01/28/25 18:45 Hydralazine HCl 10 mg Q6HP PRN IV 01/28/25 19:30 01/31/25 09:50 10 MG Losartan Potassium 100 mg DAILY PO 01/30/25 10:00 01/31/25 09:49 100 MG Aspirin 81 mg DAILY PO 01/30/25 10:00 01/31/25 09:48 81 MG Chlorthalidone 25 mg DAILY@BREAKFAST PO 01/31/25 08:00 01/31/25 09:48 25 MG Diagnostic Test (Pha) 1 strip ACHS 01/30/25 17:00 01/31/25 06:30 1 STRIP Insulin Human Regular HS SC 01/30/25 22:00 01/30/25 21:24 4 UNITS Insulin Human Regular AC SC 01/30/25 17:00 01/31/25 06:32 2 UNITS Dextrose 50 ml UD PRN IV 01/30/25 13:15 Atorvastatin Calcium 40 mg HS PO 01/30/25 22:00 01/30/25 21:17 40 MG Laboratory Results Laboratory Tests 01/31/25 07:30 Chemistry Test 01/31/25 07:30 Albumin 4.1 g/dL (3.2-4.8) Calcium Level 8.7 mg/dL (8.7-10.4) Total Protein 6.1 g/dL (5.7-8.2) LFT Test 01/31/25 07:30 Alanine Aminotransferase (ALT) 32 U/L (7-40) Alkaline Phosphatase 87 U/L (46-116) Aspartate Amino Transferase (AST) 21 U/L (13-40) Total Bilirubin 0.7 mg/dL (0.2-1.0) Assessment/Plan Assessment/Plan Acute chest pain rule out coronary syndrome Uncontrolled hypertension Type 2 diabetes Obesity Plan Cardiology consult Echocardiogram Aspirin Increase losartan to 100 mg daily Add metoprolol 12.5 mg twice a day Lovenox Monitor closely 01/30/2025: No chest pain Cardiology consult pending Echocardiogram showed moderate LVH with 65% ejection fraction Continue losartan 100 mg daily And metoprolol 12.5 mg twice a day 01/31/2025: Stress test is done, pending result Blood pressure is still high Continue losartan 100 mg daily Cardiology added chlorthalidone Add Coreg Plan discussed with: Patient My Orders Orders - ARUNA BECKFORD MD Procedure Category Date Status Time Cardiac DIET 01/30/25 Transmitted Diet-2gna,Lofat,Lochol Dinner Date of Service: Jan 31, 2025 Billing Provider: ARUNA BECKFORD MD Common Visit Codes: [id number] INP/OBS CARE(HIGH) ARUNA BECKFORD MD Jan 31, 2025 10:43
--- NOTE | 2025-01-31 11:51 | DVHSR ---
APPROVED REPORT Exam: Nuclear Stress Test BMI: 0 Stress Test Details Stress Test: Pharmacologic stress testing performed using 0.4 mg of regadenoson per 5 mL given IV ov er 10 seconds. HR Resting HR: 80 bpmMax Heart Rate (APMHR): 170.823235 bpm Max HR Achieved: 107 bpmTarget HR (85% APMHR): 144.933334 bpm % of APMHR: 62.94 Recovery HR: 89 bpm BP Resting BP: 140/79 mmHg Recovery BP: 145/92 mmHg ECG Resting ECG: Sinus Rhythm Clinical Reason for Termination: Completed protocol Nurse Comments Recieved pt. from [facility]. A/Ox4 on RA. Connected to residential monitor, VS stable. PIV flushes well. Re viewed POC. Pt. verbalized understanding of procedure including risks and side effects, agrees for st ress testing. Lexiscan stress test performed per protocol. [facility] tech administered Cardiolite. Pt. tolerated well . Pt. stable, no change on exam. VS returned to baseline. Transferred to [facility] via wheelchair w/ te ch. Stress ECG Conclusion lvef 47% mild LV dysfunction normal perfusion scan no ischemia NM EXAM: Myocardial Perfusion REST/STRESS Imaging Protocol: Rest Tc-99m/Stress Tc-99m 1 day Resting Data Rest SPECT myocardial perfusion imaging was performed in supine position 30 minutes following the int ravenous injection of 11.3 mCi of Tc-99m Sestamibi. Time of rest injection: 1400 Time of rest imagin Administration Route: IV Administration Site: Left AC Pharmacologic Stress Pharmacologic stress test was performed by injecting Regadenoson 0.4 mg IV push followed by the intra venous injection of 30.1 mCi of Tc-99m Sestamibi. Time of stress injection: 1445 Time of stress imagin Administration Route: IV Administration Site: Left AC Gated Stress SPECT was performed 45 minutes after stress injection. The images were gated to evaluate regional wall motion and calculate left ventricular ejection fracti on. Nuclear Conclusion Nuclear Findings: negative for ischemia lvef 47% mild LV dysfunction normal perfusion scan no ischemia
[2025-01-31] MEDS: CARVEDILOL 3.125 MG TAB PO ONE (12:39)
--- NOTE | 2025-01-31 13:44 | DVHPN2 ---
Consult Progress Note Date Seen: Jan 31, 2025 Subjective Review of Systems: CVS:Normal, RESPIRATORY:Normal, NEURO:Normal Objective vital signs Vital Sign Date Time Temp Pulse Resp B/P (MAP) Pulse Ox O2 Delivery O2 Flow Rate FiO2 01/31/25 12:39 102 152/108 01/31/25 09:00 97.7 20 95 97.7 01/31/25 08:00 Room Air* 0 21 Total Intake and Output 01/30/25 01/30/25 01/31/25 15:00 23:00 07:00 Intake Total 634 ml 634 ml 310 ml Output Total 1 ml Balance 634 ml 633 ml 310 ml medications Current Medications Medications Dose Ordered Sig/Debra Route Start Time Stop Time Status Last Admin Dose Admin Sodium Chloride 10 ml Q8HR IV 01/28/25 22:00 01/31/25 06:30 10 ML Docusate Sodium 100 mg BIDPRN PRN PO 01/28/25 18:45 Acetaminophen 650 mg Q6HP PRN PO 01/28/25 18:45 Acetaminophen/ Hydrocodone Bitart 1 tab Q4HP PRN PO 01/28/25 18:45 Hydromorphone HCl 0.5 mg Q4HP PRN IV 01/28/25 18:45 Enoxaparin Sodium 40 mg DAILY SC 01/29/25 10:00 01/31/25 09:49 40 MG Nitroglycerin 0.4 mg Q5MINP PRN SL 01/28/25 18:45 Morphine Sulfate 2 mg Q30M PRN IV 01/28/25 18:45 Hydralazine HCl 10 mg Q6HP PRN IV 01/28/25 19:30 01/31/25 09:50 10 MG Losartan Potassium 100 mg DAILY PO 01/30/25 10:00 01/31/25 09:49 100 MG Aspirin 81 mg DAILY PO 01/30/25 10:00 01/31/25 09:48 81 MG Chlorthalidone 25 mg DAILY@BREAKFAST PO 01/31/25 08:00 01/31/25 09:48 25 MG Diagnostic Test (Pha) 1 strip ACHS 01/30/25 17:00 01/31/25 12:39 1 STRIP Insulin Human Regular HS SC 01/30/25 22:00 01/30/25 21:24 4 UNITS Insulin Human Regular AC SC 01/30/25 17:00 01/31/25 12:37 6 UNITS Dextrose 50 ml UD PRN IV 01/30/25 13:15 Atorvastatin Calcium 40 mg HS PO 01/30/25 22:00 01/30/25 21:17 40 MG Carvedilol 12.5 mg Q12HR PO 01/31/25 22:00 UNV Examination: LUNGS:Normal, CVS:Normal, NEURO:Normal laboratory and microbiology Laboratory Tests 01/31/25 07:30 Test 01/31/25 07:30 Range/Units Serum Glucose 137 H 74-106 mg/dL Problem List/Assessment/Plan Problem List/Assessment/Plan Hypertensive urgency Sad-imdkryz-skgxsijsw diabetes mellitus Dyslipidemia, newly diagnosed Obesity ?HANS Plan/Recommendation (Dr. Magallanes) Transthoracic echocardiogram revealed LVEF 60% with moderate LVH and grade 1 diastolic dysfunction. Non-ischemic Cardiolite stress test. Continue ARB, chlorthalidone, and Coreg. Uptitrate as necessary for BP control for a target SBP <140 mmHg. Continue tight glycemic control with moderate insulin protocol ACHS. Continue lipid-lowering agent with statin. Strongly counseled risk factor modifications including diet, exercise, weight loss, and BP log. Consider an outpatient sleep study to rule out HANS. There is no further cardiac work-up indicated at this time. Kindly call if in need to re-consult. Thank you for allowing us to participate in this patient's care. This medical document was created using an electronic medical record system with voice recognition software and computerized dictation system. Although this document has been carefully reviewed, there might still be some phonetic and typographical errors. Occasional wrong-word or ``sound-alike substitutions may have occurred due to the inherent limitations of voice recognition software. These areas are purely typographical due to imperfections of the software programs and do not reflect any compromise in the patient's medical care. Please read the chart carefully and recognize, using context, where these substitutions have occurred. Plan discussed with: Patient, Spouse, Daughter, Other Date of Service: Jan 31, 2025 Billing Provider: SUZETTE POLK Cardiology Common Codes: [id number] INP/OBS CARE(Mod) SUZETTE POLK Jan 31, 2025 13:44
[2025-01-31] MEDS ORDERED: CHLO25TA2 PO (14:34)
[2025-01-31] MEDS ORDERED: LOSA-535 PO (14:34)
[2025-01-31] MEDS ORDERED: CARV-216 OR (14:34)
--- NOTE | 2025-01-31 14:42 | DVHDS2 ---
Discharge Summary Date of Admission Jan 28, 2025 at 18:35 Date of Discharge: Jan 31, 2025 Labs/Diagnostic Data: Laboratory Results Test 01/31/25 07:30 01/31/25 06:17 01/30/25 05:52 01/29/25 06:49 White Blood Count 8.1 10^3/uL (4.4-10.8) Red Blood Count 4.33 10^6/uL (4.5-5.90) Hemoglobin 13.4 g/dL (13.5-17.5) Hematocrit 38.5 % (41.0-53.0) Mean Corpuscular Volume 89.0 fL (80.0-100.0) Mean Corpuscular Hemoglobin 30.9 pg (28.0-32.0) Mean Corpuscular Hemoglobin Concent 34.7 g/dL (32.0-36.0) Red Cell Distribution Width 13.4 % (11.8-14.3) Platelet Count 263 10^3/uL (140-450) Mean Platelet Volume 8.2 fL (6.9-10.8) Neutrophils (%) (Auto) 68.4 % (37.0-80.0) Lymphocytes (%) (Auto) 19.7 % (10.0-50.0) Monocytes (%) (Auto) 8.7 % (0.0-12.0) Eosinophils (%) (Auto) 2.8 % (0.0-7.0) Basophils (%) (Auto) 0.4 % (0.0-2.0) Neutrophils # (Auto) 5.5 10 ^3/uL (1.6-8.6) Lymphocytes # (Auto) 1.6 10 ^3/uL (0.4-5.4) Monocytes # (Auto) 0.7 10 ^3/uL (0-1.3) Eosinophils # (Auto) 0.2 10 ^3/uL (0-0.8) Basophils # (Auto) 0 10 ^3/uL (0-0.2) Nucleated Red Blood Cells 0.0 % Sodium Level 142 mmol/L (136-145) Potassium Level 3.5 mmol/L (3.5-5.1) Chloride Level 104 mmol/L (98-107) Carbon Dioxide Level 29 mmol/L (20-31) Anion Gap 9 (5-15) Blood Urea Nitrogen 13 mg/dL (9-23) Creatinine 0.79 mg/dL (0.700-1.30) Glomerular Filtration Rate Calc 108 mL/min (>90) BUN/Creatinine Ratio 16.5 (10.0-20.0) Serum Glucose 137 mg/dL (74-106) Calcium Level 8.7 mg/dL (8.7-10.4) Total Bilirubin 0.7 mg/dL (0.2-1.0) Aspartate Amino Transferase (AST) 21 U/L (13-40) Alanine Aminotransferase (ALT) 32 U/L (7-40) Alkaline Phosphatase 87 U/L (46-116) Total Protein 6.1 g/dL (5.7-8.2) Albumin 4.1 g/dL (3.2-4.8) POC Glucose 152 mg/dl (70-106) Hemoglobin A1c 8.4 % A1C (<5.7) Magnesium Level 1.9 mg/dL (1.6-2.6) B-Type Natriuretic Peptide 37.23 pg/mL (0-100) Triglycerides Level 187 mg/dL (< 150) Cholesterol Level 161 mg/dL (< 200) LDL Cholesterol 106 mg/dL (< 100) HDL Cholesterol 31 mg/dL (40-59) Thyroid Stimulating Hormone (TSH) 0.48 uIU/mL (0.55-4.78) Hepatitis B Surface Antigen Negative (Negative) Hepatitis C Antibody Negative (Negative) Test 01/28/25 16:17 Troponin I High Sensitivity < 3 ng/L (</=54) Other Laboratory Tests 01/31/25 07:30 Brief Hx & Hospital Course: Final diagnoses: Acute chest pain, nonspecific GA was ruled out Uncontrolled hypertension Type 2 diabetes Obesity 49 year old male was admitted for chest pain and high BP He was taking losartan 50 mg at home, it was increased to 100 mg He was also started on chlorthalidone A stress test was done: negative for ischemia BP is still high, added Coreg Go home on : Losartan 100 mg qd Chlorthalidone 25 mg qd Coreg 12.5 mg bid Condition at Discharge: Stable Final Diagnosis/Problems List Acute chest pain, nonspecific GA was ruled out Uncontrolled hypertension Type 2 diabetes Obesity Discharge Disposition: Home SNF Discharge Will this Physician continue t: No Discharge Instruct/Medications Diet: Cardiac 2g Na,low cholest Activity: No Restrictions, As Tolerated Follow Up/Referral: PCP AMISH Medications: Losartan 100 mg qd Coreg 12.5 mg bid Chlorthalidone 25 mg qd Metformin 500 mg bid Scheduled Carvedilol (Coreg), 12.5 MG OR BID Chlorthalidone (Chlorthalidone), 25 MG PO DAILY@BREAKFAST Losartan Potassium (Losartan Potassium), 50 MG PO DAILY, (Reported) Losartan Potassium (Losartan Potassium), 1 TAB PO DAILY Metformin Hydrochloride (Metformin Hcl), 500 MG PO IBID, (Reported) Discharge Statement: "Patient was advised to return to the ER or call 911 if any headaches, dizziness, shortness of breath, chest pain, abdominal pain, bleeding, fevers, or worsening of medical condition. Patient was counseled about treatment plan, medications, possible side effects, patientverbalized understanding. All questions were answered to the best of my ability. This discharge took greater then 30 minutes in planning, reviewing documentation, counseling the patient, and discussing with other team members." ASSESSMENT ASSESSMENT Assessment Acute chest pain, nonspecific GA was ruled out Uncontrolled hypertension Type 2 diabetes Obesity Date of Service: Jan 31, 2025 Billing Provider: ARUNA BECKFORD MD Common Visit Codes: 94593-FAM/OBS DISCH DAY >30min ARUNA BECKFORD MD Jan 31, 2025 14:42
[2025-01-31] MEDS ORDERED: CARVEDILOL 12.5 MG TAB PO SCH (22:00)
[2025-01-31] MEDS ORDERED: CARVEDILOL 3.125 MG TAB PO SCH (22:00)
--- NOTE | 2025-01-31 23:30 | DVHPN2 ---
Consult Progress Note Date Seen: Jan 31, 2025 Subjective Patient reports: No new complaints Other Systems: Patient was seen and evaluated in follow up. Transthoracic echocardiogram revealed LVEF 60% with moderate LVH and grade 1 diastolic dysfunction. Non-ischemic Cardiolite stress test. Patient is cardiac stable for discharge. Telemetry reviewed. Objective vital signs Vital Sign Date Time Temp Pulse Resp B/P (MAP) Pulse Ox O2 Delivery O2 Flow Rate FiO2 01/31/25 16:53 98.3 100 18 98 01/31/25 16:46 149/104 (119) 01/31/25 08:00 Room Air* 0 21 Total Intake and Output 01/30/25 01/30/25 01/31/25 15:00 23:00 07:00 Intake Total 634 ml 634 ml 310 ml Output Total 1 ml Balance 634 ml 633 ml 310 ml Examination: GENERAL:Normal, HEENT:Normal, NECK:Normal, LUNGS:Normal, CVS:Normal, ABDOMEN:Normal, MSK:Normal, SKIN:Normal, NEURO:Normal laboratory and microbiology Laboratory Tests 01/31/25 07:30 Test 01/31/25 07:30 Range/Units Serum Glucose 137 H 74-106 mg/dL Problem List/Assessment/Plan Problem List/Assessment/Plan Problem List/Assessment/Plan Hypertensive urgency. Lzh-cksmzkt-rrjbmjyul diabetes mellitus. Dyslipidemia, newly diagnosed. Obesity. ?HANS. Plan/Recommendation Continued all current supportive medical care. Patient has been seen by Italia Garcia NP on my behalf. We have discussed the plan with the patient. Transthoracic echocardiogram revealed LVEF 60% with moderate LVH and grade 1 diastolic dysfunction. Non-ischemic Cardiolite stress test. Continue ARB, chlorthalidone, and Coreg. Uptitrate as necessary for BP control for a target SBP <140 mmHg. Continue tight glycemic control with moderate insulin protocol ACHS. Continue lipid-lowering agent with statin. Strongly counseled risk factor modifications including diet, exercise, weight loss, and BP log. Consider an outpatient sleep study to rule out HANS. There is no further cardiac work-up indicated at this time. Additional plan as per the hospital course. Plan discussed with: Patient Date of Service: Jan 31, 2025 Billing Provider: NATHAN SÁNCHEZ MD Cardiology Common Codes: 37942-[id number] [facility] CARE(High NATHAN SÁNCHEZ MD Jan 31, 2025 23:30
== END 2025-01-31 18:05 | disposition home or self-care (01) | DRG 199 ==
LOC: ER 13:59 → OVERFLOW 18:35 → WEST WING 01-29 23:15 → TELE-WESTW 01-30 23:33
PROVIDERS: ADMIT Internal Medicine Geriatric Medicine; ATTEND Internal Medicine Geriatric Medicine
DX: I16.0 Hypertensive urgency (principal); E11.9 Type 2 diabetes mellitus without complications; E66.9 Obesity, unspecified; Z68.34 Body mass index [BMI] 34.0-34.9, adult; I10 Essential (primary) hypertension; E78.5 Hyperlipidemia, unspecified; Z79.899 Other long term (current) drug therapy; Z79.84 Long term (current) use of oral hypoglycemic drugs; Z82.3 Family history of stroke; Z83.3 Family history of diabetes mellitus
CPT/HCPCS: 36415; 71046; 78452; 80048; 80053; 80061; 82962; 83036; 83735; 83880; 84443; 84484; 85025; 86803; 87340; 93005; 93017; 93306; 96372; G0378; J1815